=== PATIENT | male | born 1965 | race Caucasian/White ===

== ENCOUNTER 2018-03-16 14:32 | Emergency (ER) | payer OTHER ==
[2018-03-16] MEDS ORDERED: ALBUTEROL NEB 2.5 MG/3 ML INH STA (14:46)
[2018-03-16] MEDS ORDERED: guaiFENesin/CODEINE 5 ML UDC PO STA (14:46)
--- NOTE | 2018-03-16 14:49 | ED Physician Documentation ---
PD HPI URI - Stated complaint Stated Complaint: FLU LIKE SX - Chief complaint Chief Complaint: Resp - History obtained from History obtained from: Patient - History of Present Illness Timing - onset: Other (Sick for about 10 days of cough productive of yellow mucus, shortness of breath, sweats and chills without measured fevers. He is coughing so hard that he nearly blacks out and has had some posttussive emesis and all of his ribs and even his arms are sore. He is a smoker and smokes about half a pack a day. He is never been diagnosed with any heart or lung disease. He started lisinopril a few weeks ago, but was already getting sick at the time, and notes that he stopped lisinopril about 4 days ago which has not improved his cough.) Review of Systems Constitutional: reports: Chills, Sweats. denies: Fever Nose: denies: Rhinorrhea / runny nose, Congestion Cardiac: reports: Chest pain / pressure. denies: Palpitations Respiratory: reports: Dyspnea, Cough PD PAST MEDICAL HISTORY - Present Medications Home Medications: Ambulatory Orders Medication Instructions Recorded Confirmed Albuterol Sulf [Ventolin Hfa 1 - 2 puffs INH Q4HR PRN #1 inhaler 03/16/18 Inhaler] Doxycycline Hyclate 100 mg PO BID #14 capsule 03/16/18 Guaifenesin [Mucinex] 600 03/16/18 Lisinopril 20 03/16/18 Meloxicam 15 03/16/18 guaiFENesin/CODEINE [Robitussin AC] 5 - 10 ml PO Q6H PRN #120 ml 03/16/18 predniSONE [Deltasone] 60 mg PO DAILY 5 Days tablet 03/16/18 - Allergies Allergies/Adverse Reactions: Allergies Allergy/AdvReac Type Severity Reaction Status Date / Time acetaminophen [From Vicodin] Allergy Anxiety Verified 03/16/18 14:40 hydrocodone [From Vicodin] Allergy Anxiety Verified 03/16/18 14:40 PD ED PE NORMAL - Vitals Vital signs reviewed: Yes - General General: Alert and oriented X 3, Other (Frequent bronchitic cough) - HEENT HEENT: PERRL, EOMI, Pharynx benign - Neck Neck: Supple, no meningeal sign, No bony TTP - Cardiac Cardiac: RRR, No murmur - Respiratory Respiratory: Other (Diminished throughout with rhonchi and wheezes, nothing very focal, nonlabored.) - Abdomen Abdomen: Soft, Non tender - Extremities Extremities: No edema, No calf tenderness / cord - Neuro Neuro: Alert and oriented X 3, Normal speech Results - Vitals Vitals: Vital Signs - 24 hr 03/16/18 14:37 Temperature 37.5 C Heart Rate 93 Respiratory 20 Rate Blood Pressure 183/89 H O2 Saturation 95 Oxygen O2 Source Room air - Rads (name of study) 2v chest Radiology: EMP read contemporaneously (Interstitial prominence without focal p neumonia, concerning for chronic lung disease. He was counseled to quit smoking.) Departure - Departure Disposition: 01 Home, Self Care Clinical Impression: Bronchitis, Mild chronic obstructive pulmonary disease Condition: Good Record reviewed to determine appropriate education?: Yes Instructions: ED Bronchitis Asthmatic Prescriptions: Albuterol Sulf [Ventolin Hfa Inhaler] 1 - 2 puffs INH Q4HR PRN #1 inhaler PRN Reason: Shortness Of Air/Wheezing Doxycycline Hyclate 100 mg PO BID #14 capsule guaiFENesin/CODEINE [Robitussin AC] 5 - 10 ml PO Q6H PRN #120 ml PRN Reason: Cough predniSONE [Deltasone] 60 mg PO DAILY 5 Days tablet Comments: Your blood pressure was elevated today on check into the emergency department. This does not mean that you have hypertension, it is a common phenomenon to come to the emergency department and have elevated blood pressure. I recommend that you see your primary care physician within the week to have it rechecked when you are feeling better.
--- NOTE | 2018-03-16 15:09 | XRAY Report ---
Reason: cough Procedure Date: 03/16/2018 Accession Number: [id number] / [id number] Procedure: XR - Chest 2 View X-Ray CPT Code: 59004 FULL RESULT: EXAM: CHEST RADIOGRAPHY EXAM DATE: 03/16/2018 02:59 PM. CLINICAL HISTORY: Cough. COMPARISON: None available. TECHNIQUE: 2 views. FINDINGS: Heart size is normal. Calcified plaques in the thoracic aorta. No consolidation, pleural effusion, or pneumothorax. Diffuse prominence of the pulmonary interstitium. IMPRESSION: No evidence of focal pneumonia. Diffuse prominence of the pulmonary interstitium, which may represent changes from chronic lung disease and/or mild interstitial edema. [facility]
[2018-03-16 15:41] VITALS: BP 160/88
== END 2018-03-16 15:39 | disposition home or self-care (01) ==
LOC: ED 14:32
DX: J40 Bronchitis, not specified as acute or chronic (principal); J44.9 Chronic obstructive pulmonary disease, unspecified; R03.0 Elevated blood-pressure reading, without diagnosis of hypertension; F17.200 Nicotine dependence, unspecified, uncomplicated
CPT/HCPCS: 71046; 94640; 99283; A9270

== ENCOUNTER 2019-11-20 11:48 | Day surgery (SDC) | payer OTHER ==
[2019-11-20] MEDS ORDERED: LACTATED RINGERS 1,000 ML IV ONE ×2 (12:14→14:54)
[2019-11-20] MEDS ORDERED: MIDAZOLAM 2 MG/2 ML VIAL IVP ONE (14:27)
[2019-11-20] MEDS ORDERED: fentaNYL 250 MCG/5 ML VIAL IVP ONE (14:27)
[2019-11-20 15:33] VITALS: BP 112/70
== END 2019-11-20 11:49 | disposition home or self-care (01) ==
LOC: SDS 11:48
PROVIDERS: ATTEND Surgery
PROC: 0DBN8ZZ Excision of Sigmoid Colon, Via Natural or Artificial Opening Endoscopic (ICD-10-PCS; principal; 2019-11-20 13:15)
DX: Z12.11 Encounter for screening for malignant neoplasm of colon (principal); K63.5 Polyp of colon; K57.30 Diverticulosis of large intestine without perforation or abscess without bleeding; Z80.0 Family history of malignant neoplasm of digestive organs; Z87.891 Personal history of nicotine dependence
CPT/HCPCS: 45380; J3010; J7120